=== PATIENT | female | born 1995 | race Two or more races ===

== ENCOUNTER 2021-11-28 09:50 | Emergency (ER) | payer SELFPAY ==
[~2021-11-28] VITALS: Ht 165.1 cm; Wt 70.0 kg
[2021-11-28 10:02] VITALS: BP 110/72
[2021-11-28] MEDS ORDERED: INDO75CA66 MT (11:40)
[2021-11-28] MEDS ORDERED: POLY10DR LEFTEYE (11:40)
[2021-11-28] MEDS ORDERED: MED4 MT (11:40)
== END 2021-11-28 12:03 | disposition home or self-care (01) ==
LOC: ER 10:10
DX: H15.002 Unspecified scleritis, left eye (principal)
CPT/HCPCS: 99282; 99283